=== PATIENT | male | born 1950 | race Caucasian/White ===

== ENCOUNTER 2020-10-03 12:01 | Inpatient (IN) | payer OTHER, MEDICARE ==
[2020-10-03] VITALS (26 sets, daily range): BP systolic 107–138; BP diastolic 45–88
[~2020-10-03] VITALS: Ht 182.9 cm; Wt 89.8 kg
--- NOTE | 2020-10-03 12:05 | NUR ---
[id number] [facility], per [facility] pt's pmd called of critical low hgb. Patient denies any medical complains. Patient in bed, kept comfortable.
--- NOTE | 2020-10-03 12:15 | NUR ---
Dr. Gómez at bedside for eval. rectal exam done with a supervisor boarding.
[2020-10-03] MEDS ORDERED: PALI234D IM (12:21)
[2020-10-03] MEDS ORDERED: GABA300C PO (12:21)
[2020-10-03] MEDS ORDERED: ESCI10TA PO ×2 (12:21→13:01)
[2020-10-03] MEDS ORDERED: IV NS 0.9% 1,000 ML BAG IV ONE (12:30)
--- NOTE | 2020-10-03 12:33 | NUR ---
IV LINE ESTABLISHED, BLOOD DRAWN AND SENT TO LAB.
[2020-10-03 12:44] LABS: BASOPHILS # (AUTO) 0.1 /CMM (0.0-0.2); BASOPHILS % (AUTO) 1.7 % (0.0-2.0); EOSINOPHILS % (AUTO) 3.5 % (0.0-6.0); LYMPHOCYTES # (AUTO) 1.2 /CMM (0.8-4.8); LYMPHOCYTES % (AUTO) 33.5 % (20.0-44.0); MEAN CORPUSCULAR HGB CONC 28 g/dl (31.0-36.0); MEAN CORPUSCULAR VOLUME 59 fL (80-96); MONOCYTES # (AUTO) 0.3 /CMM (0.1-1.30); MONOCYTES % (AUTO) 8.6 % (2.0-12.0); NEUTROPHILS # (AUTO) 1.9 /CMM (1.8-8.9); NEUTROPHILS % (AUTO) 52.7 % (43.0-81.0); PLATELET COUNT (AUTO) 338 /CMM (150-450); RED BLOOD CELL COUNT(AUTO) 2.72 MIL/uL (4.5-6.0); WHITE BLOOD COUNT (AUTO) 3.5 K/uL (4.3-11.0)
[2020-10-03 12:49] LABS: CARBON DIOXIDE 26 mmol/L (21-32); CHLORIDE 106 mmol/L (98-107); CREATININE 0.9 mg/dL (0.6-1.3); GLUCOSE 102 mg/dL (74-106); POTASSIUM 3.9 mmol/L (3.5-5.1); SODIUM SERUM 143 mmol/L (136-145); UREA NITROGEN, BLOOD 13 mg/dL (7-18)
[2020-10-03 12:54] LABS: ALANINE AMINOTRANSFERASE 15 U/L (12-78); ALBUMIN 3.5 g/dL (3.4-5.0); ALKALINE PHOSPHATASE 74 U/L (46-116); ASPARTATE AMINOTRANSFERASE 15 U/L (15-37); BILIRUBIN,TOTAL 0.2 mg/dL (0.2-1.0); CALCIUM, SERUM 8.6 mg/dL (8.5-10.1); HEMATOCRIT 16 % (39-51); LIPASE 71 U/L (73-393); TOTAL PROTEIN, SERUM 7.3 g/dL (6.4-8.2)
[2020-10-03 12:55] LABS: HEMOGLOBIN 4.4 g/dL (13.5-17.5)
[2020-10-03] MEDS ORDERED: B/P MED (13:01)
--- NOTE | 2020-10-03 13:19 | NUR ---
MD EXPLAINED BLOOD TRANSFUSION PROCESS, PATIENT AGREED AND GAVE CONSENT.
--- NOTE | 2020-10-03 13:23 | NUR ---
PATIENT GOING TO [facility] 257.
--- NOTE | 2020-10-03 13:34 | NUR ---
REPORT GIVEN TO ANAT GARCIA.
[2020-10-03 13:52] LABS: EOSINOPHILS % (MANUAL) 3 % (0-4); LYMPHOCYTES % (MANUAL) 24 % (16-48); MONOCYTES % (MANUAL) 8 % (0-11.0); NEUTROPHILS % (MANUAL) 65 (42-76)
[2020-10-03] MEDS ORDERED: IOHEXOL-300 100 ML VIAL IV ONE (13:52)
[2020-10-03] MEDS ORDERED: IV NS 0.9% 250 ML IV ONE (13:53)
[2020-10-03] MEDS ORDERED: CT SWABBABLE VALVE TRANS SET 1 EA INFUS.SET MC ONE (13:53)
[2020-10-03 14:08] LABS: IRON, SERUM 9 ug/dl (50-175); TOTAL IRON BINDING CAPACITY 361 ug/dl (250-450)
--- NOTE | 2020-10-03 14:14 | NUR ---
patient transferred to room 257 via acls protocol. No distress noted. PRBC 1 unit is not ready at this time. Patient a/ox4, breathinge horace and unlabored, no sob noted. Endorsed to Cornelio GARCIA for amanda.
--- NOTE | 2020-10-03 14:15 | NUR ---
RADIO STATION ENGINEER NOTES ADMITTED 70 YEARS OLD, M, DUE TO WEAKNESS, ADMITTING DIAGNOSIS OF SEVERE ANEMIA, WILL TRANSFUSE PRBC, CONSENT SIGNED, AWAITING FOR BLOOD. A/O X2, ON RA, TOLERATING WELL, IV ACCESS ON LAC#18, ON TELE MONITOR, SR WITH HR OF 78. SKIN INTACT. SAFETY MEASURES INITIATED, BED IN LOWEST LOCKED POSITION WITH SIDE RAILS UP X2, CALL LIGHT PLACED WITHIN EASY REACH, WILL CONTINUE TO MONITOR.
[2020-10-03 14:26] LABS: FERRITIN 6 ng/mL (8-388)
[2020-10-03] MEDS ORDERED: ACETAMINOPHEN 325 MG TABLET PO PRN (14:30)
[2020-10-03] MEDS ORDERED: Z GUARD REMEDY 2 OZ OINT TP PRN (14:30)
[2020-10-03] MEDS ORDERED: MAGNESIUM HYDROXIDE 30 ML UDC PO PRN (14:30)
[2020-10-03] MEDS ORDERED: MAG HYDROX/AL HYDROX/SIMETH 30 ML UDC PO PRN (14:30)
[2020-10-03] MEDS ORDERED: ONDANSETRON HCL/PF 4 MG/2 ML VIAL IVP PRN (14:30)
[2020-10-03] MEDS: SOD FERRIC GLUC 125 MG in IV NS 0.9% 100 ML IV SCH (14:47)
[2020-10-03] MEDS: PANTOPRAZOLE 40 MG VIAL IV SCH (16:27)
[2020-10-03] MEDS ORDERED: ACETAMINOPHEN 325 MG TABLET PO ONE (17:30)
[2020-10-03] MEDS ORDERED: diphenhydrAMINE HCL 50 MG/ML VIAL IV ONE (17:30)
--- NOTE | 2020-10-03 18:41 | NUR ---
JUMP ROLL OPERATOR NOTES PATIENT IN BED RESTING COMFORTABLY IN MODERATE HIGH BACK REST. A/O X4. ON RA SATING 99%, IV ACCESS ON LAC#18 CURRENTLY TRANSUFING 1 UNIT OF PRBC, TOLERATING WELL, NO ADVERSE REACTIO NOTED AT THIS TIME, VSS. SAFETY MEASURES IN PLACE, BED IN LOWEST LOCKED POSITION WITH SIDE RAILS UP X2. CALL LIGHT WITHIN REACH. WILL ENDORSE TO FACING SLITTER NURSE FOR YADIRA.
--- NOTE | 2020-10-03 19:30 | NUR ---
RN OPENING NOTES: RECEIVED PT A/OX3-4 IN BED RESTING COMFORTABLY. PATIENT IN NO S/SX OF ACUTE DISTRESS AT THIS TIME. NO SOB NOTED. PATIENT'S BREATHING IS EVEN AND UNLABORED. PATIENT IS ON ROOM AIR; TOLERATING WELL WITH O2 SAT OF 98% AT THE TIME OF RECEIVED. PATIENT ON TELE MONITORING READING SINUS RHYTHM HR IS @66 AT THE TIME OF RECEIVED.PT IS AMBULATORY. NOTED IV SITE ON L AC #18;PATENT, INTACT AND FLUSHING WELL; NO S/S OF INFECTION OR INFILTRATION. RECEIVED WITH ONGOING BLOOD TRANSFUSION 1ST BAG. WITH URINALS AT BEDSIDE. SAFETY MEASURES HAVE BEEN PROVIDED AND IMPLEMENTED. PATIENT BED ALARM IS ON. HEAD OF BED ELEVATED. BED IS LOCKED, IN LOWEST POSITION AND SIDE RAILS UP. CALL LIGHT WITHIN REACH OF THE PATIENT. APPLICABLE ISOLATION PRECAUTIONS IN PLACE. WILL CONTINUE TO MONITOR AND REASSESS FOR ANY CHANGES AND WILL CARRY OUT ANY ONGOING AND ACTIVE MD ORDER.
--- NOTE | 2020-10-03 20:40 | NUR ---
RN NOTES ENDED INFUSION AT 2037 1ST BAG OF PRBC, NO TRANSFUSION REACTION NOTED. VITAL SIGNS WNL. MANAGER SALT MADE AWARE. WILL CONTINUE TO MONITOR AND REASSESS FOR ANY TRANSFUSION REACTION POST PROCEDURE.
--- NOTE | 2020-10-03 21:20 | NUR ---
RN NOTES STARTED 2ND BAG OF PRBC, VITAL SIGNS WNL. WILL CONTINUE TO MONITOR AND REASSESS FOR ANY TRANSFUSION REACTION.STAFF APPRAISER WELL AWARE.
--- NOTE | 2020-10-03 21:30 | NUR ---
RN NOTES VERIFIED WITH NORMA KATZ REGARDING ORDER FOR BLOOD TRANSFUSION PER SABAS TO TRANSFUSE 3 BAGS OF PRBC AND PER ALEX/ONCO TRANSFUSE 2 BAGS ; NORMA KATZ SAID DO 3 BAGS THEN H&H AFTER 1HOUR. DYNAMITE CARTRIDGE CRIMPER MADE AWARE. WILL CARRY OUT ORDER REQUESTED
--- NOTE | 2020-10-03 22:30 | NUR ---
RN NOTES PATIENT REMAINS IN NO ACUTE RESPIRATORY DISTRESS AT THIS TIME, NO CHANGES TO CONDITION/STATUS. SUEDING MACHINE TENDER WELL AWARE. WILL CONTINUE TO MONITOR AND REASSESS FOR ANY CHANGES THROUGHOUT THE SHIFT
--- NOTE | 2020-10-03 23:45 | NUR ---
RN NOTES ENDED INFUSION AT 2345 2ND BAG OF PRBC, NO TRANSFUSION REACTION NOTED. VITAL SIGNS WNL. TECHNICAL CLERK MADE AWARE. WILL CONTINUE TO MONITOR AND REASSESS FOR ANY TRANSFUSION REACTION POST PROCEDURE
[2020-10-04] VITALS (28 sets, daily range): BP systolic 113–158; BP diastolic 63–96
--- NOTE | 2020-10-04 00:15 | NUR ---
RN NOTES NOTED IV LINE ON L AC TO BE DISLODGED AND NON-PATENT. FACILITATED CHANGE AND REINSERTION OF IV LINE @ L HAND #20; SECURED, INTACT AND FLUSHING WELL. SPACECRAFT SYSTEMS ENGINEER MADE AWARE. WILL CONTINUE TO MONITOR AND ASSESS THROUGHOUT THE SHIFT
--- NOTE | 2020-10-04 01:15 | NUR ---
RN NOTES NOTED PT REMOVED HIS IV ACCESS/LINE, RESTLESS AND AGITATED. ROWENA GARCIA MADE AWARE, WILL CONTACT NORMA KATZ TO SECURE FOR ORDERS. NORMA KATZ ORDERED ATIVAN 1MG Q6PRN AND ACUTE MEDICAL RESTRAINTS. ROWENA GARCIA MADE AWARE. WILL CARRYOUT ORDER AND CONTINUE TO MONITOR AND ASSESS. Addendum: 10/04/20 at 0225 by JOSLYN GOULD RN NEW IV LINE/ACCESS ON THE L AC #20; SECURED, INTACT AND FLUSHING WELL. ROWENA GARCIA MADE AWARE. WILL CONTINUE TO MONITOR AND ASSESS THROUGHOUT THE SHIFT
[2020-10-04] MEDS: LORAZEPAM INJ 2 MG/ML VIAL IV PRN ×2 (01:57→09:20)
--- NOTE | 2020-10-04 02:27 | NUR ---
RN NOTES STARTED 3RD BAG OF PRBC, VITAL SIGNS WNL. WILL CONTINUE TO MONITOR AND REASSESS FOR ANY TRANSFUSION REACTION.HEALTH INFORMATION MANAGER WELL AWARE.
--- NOTE | 2020-10-04 03:30 | NUR ---
RN NOTES NO CHANGE IN PATIENT CONDITION AT THIS TIME PATIENT VITALS STABLE, NO SIGNS OF ACUTE RESPIRATORY DISTRESS. SPORTS AGENT MADE AWARE. WILL CONTINUE TO MONITOR AND REASSESS FOR ANY CHANGES THROUGHOUT THE SHIFT.
--- NOTE | 2020-10-04 04:18 | NUR ---
RN NOTES ENDED INFUSION AT 0418 3RD BAG OF PRBC, NO TRANSFUSION REACTION NOTED. VITAL SIGNS WNL. NURSE CHEMICAL DEPENDENCY MADE AWARE. WILL CONTINUE TO MONITOR AND REASSESS FOR ANY TRANSFUSION REACTION POST PROCEDURE. WILL REQUEST FOR H&H 1 HOUR POST PROCEDURE
[2020-10-04 04:45] LABS: BILIRUBIN,URINE NEGATIVE (NEGATIVE); COLOR,URINE YELLOW (YELLOW); LEUKOCYTE ESTERASE ,URINE NEGATIVE (NEGATIVE); NITRITE, URINE NEGATIVE (NEGATIVE); PROTEIN,URINE NEGATIVE (NEGATIVE); UGLUCOSE NEGATIVE (NEGATIVE); UROBILINOGEN,URINE 0.2 EU/dL (0.2)
[2020-10-04 05:41] LABS: BASOPHILS % (AUTO) 0.9 % (0.0-2.0); EOSINOPHILS % (AUTO) 1.7 % (0.0-6.0); HEMATOCRIT 25 % (39-51); HEMOGLOBIN 7.4 g/dL (13.5-17.5); LYMPHOCYTES # (AUTO) 1.2 /CMM (0.8-4.8); LYMPHOCYTES % (AUTO) 24.2 % (20.0-44.0); MEAN CORPUSCULAR HGB CONC 30 g/dl (31.0-36.0); MEAN CORPUSCULAR VOLUME 69 fL (80-96); MONOCYTES # (AUTO) 0.3 /CMM (0.1-1.30); MONOCYTES % (AUTO) 6.5 % (2.0-12.0); NEUTROPHILS # (AUTO) 3.4 /CMM (1.8-8.9); NEUTROPHILS % (AUTO) 66.7 % (43.0-81.0); PLATELET COUNT (AUTO) 301 /CMM (150-450); RED BLOOD CELL COUNT(AUTO) 3.65 MIL/uL (4.5-6.0); WHITE BLOOD COUNT (AUTO) 5.2 K/uL (4.3-11.0)
[2020-10-04 05:52] LABS: CALCIUM, SERUM 8.7 mg/dL (8.5-10.1); CREATININE 1.1 mg/dL (0.6-1.3); MAGNESIUM 2.1 mg/dL (1.8-2.4); PHOSPHORUS 3.5 mg/dL (2.5-4.9); POTASSIUM 3.9 mmol/L (3.5-5.1)
[2020-10-04 06:01] LABS: THYROID STIMULATING HORMONE 1.849 uIU/mL (0.358-3.74)
--- NOTE | 2020-10-04 06:56 | NUR ---
RN CLOSING NOTE: PATIENT REMAINS IN ROOM IN NO SIGNS OF RESPIRATORY DISTRESS, PATIENT STILL ON ROOM AIR;TOLERATING WELL SATURATING @ >95% SP02. SAFETY MEASURES IMPLEMENTED, BED IN LOWEST POSITION, LOCKED, SIDE RAILS UP, CALL LIGHT WITHIN REACH. ALL NEEDS AND ORDERS ADDRESSED DURING THE SHIFT. IV ACCESS MAINTAINED INTACT, SECURED AND FLUSHING WELL. ALL DUE MEDS GIVEN ORDERED & SCHEDULED ; PATIENT TOLERATED WELL. PATIENT KEPT CLEAN AND COMFORTABLE WITHIN THE SHIFT. PATIENT ENDORSED TO INCOMING SHIFT RN WITH STABLE VITAL SIGN AND FOR CONTINUITY OF CARE.
--- NOTE | 2020-10-04 07:10 | NUR ---
LICENSE ISSUER NOTES RECEIVED PATIENT IN BED ASLEEP IN MODERATE HIGH BACK REST, NO SIGNS OF RESPIRATORY DISTRESS, PATIENT STILL ON ROOM AIR;TOLERATING WELL SATURATING @ >95% SP02. IV ACCESS ON LAC#20, INTACT, SECURED AND FLUSHING WELL. SAFETY MEASURES MAINTAINED, BED IN LOWEST POSITION, LOCKED, SIDE RAILS UPX2, CALL LIGHT WITHIN REACH. WILL CONTINUE TO MONITOR.
[2020-10-04] MEDS: NICOTINE PATCH (14MG) 14 MG PATCH.TD24 TD SCH (08:04)
[2020-10-04] MEDS: PANTOPRAZOLE 40 MG VIAL IV SCH ×2 (08:04→17:00)
--- NOTE | 2020-10-04 09:03 | NUR ---
MOLDED PARTS INSPECTOR NOTES PATIENT REMOVED BP CUFF AND OXYGEN MONITORING DEVICE, EXPLAINED RISKS AND BENEFITS BUT STILL REFUSED, MD AWARE. WILL CONTINUE TO MONITOR.
--- NOTE | 2020-10-04 09:05 | NUR ---
CONCRETE SCULPTOR NOTES PATIENT AGITATED, WALKING BACK AND FORT INISIDE THE ROOM. NOT COMPLIANT, REORIENTED FOR A FEW TIMES, WILL GIVE ATIVAN ORDERED, WILL CONTINUE TO MONITOR.
[2020-10-04 10:44] LABS: HEMOGLOBIN 7.6 g/dL (13.5-17.5)
--- NOTE | 2020-10-04 11:59 | NUR ---
Director Of Collections And Archives note: food services director consult requested for homelessness. Patient is a 70-year-old, white male. SW attempted to meet with the patient at his bedside on the ICU. Patient presented lethargic and unarousable. food services director will follow-up with the patient at a later time for consult and to provide resources.
--- NOTE | 2020-10-04 13:30 | NUR ---
Coding Technician note: SHI spoke to rn relief charge, Aileen who stated that a psychiatric consult order has been made with Dr. Nash.
--- NOTE | 2020-10-04 14:25 | NUR ---
RN NOTES PATIENT TRANSFERRED TO ROOM 116, REPORT GIVEN TO JOSE ROBLEDO AT BEDSIDE, PATIENT IN STABLE CONDITION, ALL BELONGINGS AND MEDICATION WITH PATIENT, VSS.
[2020-10-04] MEDS: SOD FERRIC GLUC 125 MG in IV NS 0.9% 100 ML IV SCH (15:13)
--- NOTE | 2020-10-04 15:17 | NUR ---
Patient received from ICU in stable condition. Patient provided with tele upon unit transfer. No c/o pain or discomfort.
--- NOTE | 2020-10-04 17:50 | NUR ---
Patient noted with his IV pulled out, no s/s of bleeding. Patient provided care and refused to have his iv re inserted. Patient also noted to be smoking in his room. Security called and retail customer service specialist and cigaretts given to staff by patient.Patient refused CT without contrast. All information provided to MD Marquez and made aware. Per NNO.
[2020-10-04] MEDS ORDERED: PEG 3350/NA SULF,BICARB,CL/KCL 4,000 ML BOTTLE PO ONE (19:00)
--- NOTE | 2020-10-04 19:30 | NUR ---
RN CLOSING NOTES Patient is alert and oriented with forgetfulness. No c/o pain or discomfort. Able to ambulate. Patient non compliant with care. Endorsed to next shift to follow up about go lytely along with patient's consent for colonoscopy.Endorsed to next shift for amanda.Patient did not have his iv at the time of endorsement due to refusal. aware.
--- NOTE | 2020-10-04 19:45 | NUR ---
RN NOTES RECEIVED PT. ALERT AND ORIENTED X 2, FORGETFUL. REORIENTED TO PLACE AND SITUATION. PT ASKING FOR COFFEE, EDUCATED ABOUT BEING NPO AND FOR COLONOSCOPY TOMORROW AND NEED TO DRINK GOLYTELY. PT ASKING REPEATEDLY WHAT IS IT FOR, ANSWERED ALL QUESTIONS. PT STARTED DRINKING GOLYTELY. PT ON TELE MONITOR SHOWS SR WITH HR OF 61. DENIES ANY PAIN AT THIS TIME. NO DISTRESS NOTED. PT NO IV ACCESS. TRIED 3X. ATTEMPT UNSUCCESSFUL. WILL TRY AGAIN LATER. ALL SAFETY MEASURES IMPLEMENTED PER PROTOCOL. CALL LIGHT WITHIN REACH. WILL CONTINUE TO MONITOR.
[2020-10-05] VITALS: BP 141/86
[2020-10-05 04:00] VITALS: BP 121/80
--- NOTE | 2020-10-05 06:43 | NUR ---
RN NOTE PT IN BED SLEEPING, AROUSES EASILY. NO DISTRESS NOTED. PT ABLE TO FINISH ABOUT 3L OF GOLYTELY. PT DOES NOT WANT TO FINISH THE BOTTLE ANYMORE, EXPLAINED RISKS AND BENEFITS. NO SCHEDULE FOR COLONOSCOPY YET. WAS ABLE TO INSERT NEW IV LINE ON RIGHT HAND, PT PULLED OUT A MINUTE AFTER, PER PT HE DOESN'T WANT ANY IV. WILL ENDORSE TO NEXT SHIFT NURSE.
[2020-10-05 06:54] LABS: BASOPHILS # (AUTO) 0.1 /CMM (0.0-0.2); BASOPHILS % (AUTO) 1.7 % (0.0-2.0); EOSINOPHILS % (AUTO) 5.4 % (0.0-6.0); HEMATOCRIT 25 % (39-51); HEMOGLOBIN 7.4 g/dL (13.5-17.5); LYMPHOCYTES # (AUTO) 1.2 /CMM (0.8-4.8); LYMPHOCYTES % (AUTO) 33.8 % (20.0-44.0); MEAN CORPUSCULAR HGB CONC 30 g/dl (31.0-36.0); MEAN CORPUSCULAR VOLUME 68 fL (80-96); MONOCYTES # (AUTO) 0.4 /CMM (0.1-1.30); MONOCYTES % (AUTO) 10.4 % (2.0-12.0); NEUTROPHILS # (AUTO) 1.7 /CMM (1.8-8.9); NEUTROPHILS % (AUTO) 48.7 % (43.0-81.0); PLATELET COUNT (AUTO) 311 /CMM (150-450); RED BLOOD CELL COUNT(AUTO) 3.66 MIL/uL (4.5-6.0); WHITE BLOOD COUNT (AUTO) 3.6 K/uL (4.3-11.0)
[2020-10-05 07:04] LABS: CALCIUM, SERUM 8.8 mg/dL (8.5-10.1)
--- NOTE | 2020-10-05 07:15 | NUR ---
RN OPENING NOTE Received patient asleep in bed. Appears calm and relaxed no signs of distress. Patient on room air tolerating well. No co pain or discomfort. Patient is cooperative. NPO for colonoscopy. Refused IV insertion per night cleaner. No signs of bleeding. Go Lytley was consumed 1/4 left. Will cont to monitor. Safety measures maintained.
[2020-10-05 08:00] VITALS: BP 119/55
[2020-10-05 08:06] LABS: IMMUNOGLOBULIN A, SERUM 302 mg/dL (61-437); IMMUNOGLOBULIN G, SERUM 1254 mg/dL (603-1613); IMMUNOGLOBULIN M, SERUM 49 mg/dL (20-172)
[2020-10-05 10:07] LABS: *ANA ANTI-CENTROMERE B AB <0.2 AI (0.0-0.9); *ANA ANTI-DNA(DS) AB, QN 44 IU/mL (0-9); *ANA ANTI-JO-1 <0.2 AI (0.0-0.9); *ANA ANTICHROMATIN ANTIBODY <0.2 AI (0.0-0.9); *ANA RNP ANTIBODIES <0.2 AI (0.0-0.9); *ANA SJOGREN'S ANTI-SS-A <0.2 AI (0.0-0.9); *ANA SJOGREN'S ANTI-SS-B <0.2 AI (0.0-0.9); *ANAANTI-SCLERODERMA-70 AB <0.2 AI (0.0-0.9); *ANASMITH AB <0.2 AI (0.0-0.9)
[2020-10-05] MEDS: NICOTINE PATCH (14MG) 14 MG PATCH.TD24 TD SCH (10:14)
--- NOTE | 2020-10-05 10:37 | NUR ---
PT REFUSED COLONOSCOPY AND IV INSERTION. INFORMED SABAS RODRÍGUEZ. OK TO START CLEAR LIQUID DIET. INFORMED PHARMACY TO CHANGE IV MEDS TO PO.
[2020-10-05] MEDS: PANTOPRAZOLE 40 MG TABLET.DR PO SCH ×2 (10:45→17:06)
[2020-10-05] MEDS ORDERED: LORAZEPAM 1 MG TABLET PO PRN (11:00)
[2020-10-05] MEDS ORDERED: ONDANSETRON 4 MG TAB.RAPDIS PO PRN (11:00)
[2020-10-05 12:00] VITALS: BP 120/80
[2020-10-05 16:00] VITALS: BP 124/82
[2020-10-05] MEDS ORDERED: PEG 3350/NA SULF,BICARB,CL/KCL 4,000 ML BOTTLE PO ONE (18:00)
--- NOTE | 2020-10-05 18:52 | NUR ---
RN CLOSING NOTE Patient in bed awake watching TV. Appears calm and relaxed. No signs of distress. No bleeding. All due meds given. Go Lytely at bedside instructed to finish by 6am. NPO after midnight. Colonoscopy consent in the chart. Vital signs within normal limits. Will endorse to night baker nurse for amanda.
--- NOTE | 2020-10-05 19:30 | NUR ---
RN OPENING NOTES: RECEIVED PT A/OX2-3 IN HIS ROOM RESTING COMFORTABLY. PATIENT IN NO S/SX OF ACUTE DISTRESS AT THIS TIME. NO SOB NOTED. PATIENT'S BREATHING IS EVEN AND UNLABORED. PATIENT IS ON ROOM AIR ; TOLERATING WELL WITH 02 SAT OF100% AT THE TIME OF RECEIVED. PATIENT ON TELE MONITORING READING SINUS RHYTHM HR IS @60s AT THE TIME OF RECEIVED. PATIENT ON CLEAR DIET; TOLERATES WELL. WILL BE ON NPO POST MIDNIGHT IN PREPARATION FOR COLONSCOPY WILDER MORNING. NO IV SITE/ACCESS AT THE TIMEOF RECEIVED; PT REFUSED. PT HAS BRP. SAFETY MEASURES HAVE BEEN PROVIDED AND IMPLEMENTED. PATIENT BED ALARM IS ON. HEAD OF BED ELEVATED. BED IS LOCKED, IN LOWEST POSITION AND SIDE RAILS UP. CALL LIGHT WITHIN REACH OF THE PATIENT. APPLICABLE ISOLATION PRECAUTIONS IN PLACE. WILL CONTINUE TO MONITOR AND REASSESS FOR ANY CHANGES AND WILL CARRY OUT ANY ONGOING AND ACTIVE MD ORDER.
[2020-10-05 20:00] VITALS: BP 139/82
--- NOTE | 2020-10-05 22:30 | NUR ---
RN NOTES NO CHANGE IN PATIENT CONDITION AT THIS TIME PATIENT VITALS STABLE, NO SIGNS OF ACUTE RESPIRATORY DISTRESS. PROPERTY DAMAGE CLAIMS ADJUSTOR MADE AWARE. WILL CONTINUE TO MONITOR AND REASSESS FOR ANY CHANGES THROUGHOUT THE SHIFT.
[2020-10-06] VITALS (7 sets, daily range): BP systolic 127–170; BP diastolic 75–84
--- NOTE | 2020-10-06 | NUR ---
RN NOTES PT ON NPO POST MIDNIGHT IN PREPARATION FOR AM PROCEDURE ( COLONSCOPY) COMMUNITY MARKETING COORDINATOR WELL AWARE. .
--- NOTE | 2020-10-06 03:00 | NUR ---
RN NOTES PATIENT REMAINS IN NO ACUTE RESPIRATORY DISTRESS AT THIS TIME, NO CHANGES TO CONDITION/STATUS. AM PATIENT CARE DONE. MACHINE DEICER ELEMENT WINDER WELL AWARE. WILL CONTINUE TO MONITOR AND REASSESS FOR ANY CHANGES THROUGHOUT THE SHIFT
--- NOTE | 2020-10-06 05:00 | NUR ---
RN NOTES INITIATED/ATTEMPTED IV LINE INSERTION FOR THE 2ND TIME FOR THE SHIFT BUT PT REFUSED; EXPLAINED RISK AND BENEFITS BUT PT STILL REFUSED. MOTOR COACH CHAUFFEUR MADE AWARE. WILL ENDORSE TO AM SHIFT FOR FOLLOW THROUGH.
--- NOTE | 2020-10-06 06:54 | NUR ---
RN CLOSING NOTE: PATIENT REMAINS IN ROOM IN NO SIGNS OF RESPIRATORY DISTRESS, PATIENT STILL ON ROOM AIR;TOLERATTNG WELL SATURATING @ >95% SP02. SAFETY MEASURES IMPLEMENTED, BED IN LOWEST POSITION, LOCKED, SIDE RAILS UP, CALL LIGHT WITHIN REACH. ALL NEEDS AND ORDERS ADDRESSED DURING THE SHIFT. STILL WITHOUT IV ACCESS; PT REFUSED. ON NPO AT THIS TIME. PATIENT KEPT CLEAN AND COMFORTABLE WITHIN THE SHIFT. PATIENT ENDORSED TO INCOMING SHIFT RN WITH STABLE VITAL SIGN AND FOR CONTINUITY OF CARE.
[2020-10-06 07:29] LABS: BASOPHILS # (AUTO) 0.1 /CMM (0.0-0.2); BASOPHILS % (AUTO) 1.8 % (0.0-2.0); EOSINOPHILS % (AUTO) 6.4 % (0.0-6.0); HEMATOCRIT 26 % (39-51); LYMPHOCYTES # (AUTO) 1.4 /CMM (0.8-4.8); LYMPHOCYTES % (AUTO) 39.5 % (20.0-44.0); MEAN CORPUSCULAR HGB CONC 30 g/dl (31.0-36.0); MEAN CORPUSCULAR VOLUME 69 fL (80-96); MONOCYTES # (AUTO) 0.3 /CMM (0.1-1.30); MONOCYTES % (AUTO) 8.3 % (2.0-12.0); NEUTROPHILS # (AUTO) 1.6 /CMM (1.8-8.9); PLATELET COUNT (AUTO) 333 /CMM (150-450); RED BLOOD CELL COUNT(AUTO) 3.85 MIL/uL (4.5-6.0); WHITE BLOOD COUNT (AUTO) 3.6 K/uL (4.3-11.0)
[2020-10-06 07:56] LABS: CALCIUM, SERUM 9.1 mg/dL (8.5-10.1); CREATININE 1.1 mg/dL (0.6-1.3); MAGNESIUM 2.2 mg/dL (1.8-2.4); PHOSPHORUS 4.6 mg/dL (2.5-4.9); POTASSIUM 4.7 mmol/L (3.5-5.1)
--- NOTE | 2020-10-06 08:05 | NUR ---
MS RN NOTE PATIENT IN BED , ALERT ORIENTED ON NPO AT THIS TIME , PATIENT WILL HAVE COLONOSCOPY TODAY,BED IN LOWEST AND LOCKED POSITION , CALL LIGHT WITHIN REACH , BED IN LOWEST AND LOCKED POSITION , SAFETY MEASURE IMPLEMENTED, WILL CONT TO MONITOR CLOSELY
[2020-10-06] MEDS: NICOTINE PATCH (14MG) 14 MG PATCH.TD24 TD SCH (08:34)
[2020-10-06] MEDS: PANTOPRAZOLE 40 MG TABLET.DR PO SCH ×2 (09:00→16:47)
--- NOTE | 2020-10-06 10:00 | NUR ---
SUPERVISOR [employer]ITATION NOTE CALLED TO DR WOODS NOTIFIED THAT T 99.4 OK TO GIVE TYLENOL AND GIVE BLOOD TRANSFUSION , WILL F\U Addendum: 10/06/20 at 1045 by RAMBO FERNANDEZ RN WRONG CHARTING
--- NOTE | 2020-10-06 10:25 | NUR ---
ABDULKADIR;ANYA GARCIA NOTE I UNIT PRBC START TO TRANSFUSE Addendum: 10/06/20 at 1045 by RAMBO FERNANDEZ RN WRONG CHARTING
--- NOTE | 2020-10-06 10:46 | NUR ---
MS RN NOTE TAKING TO COLONOSCOPY TO GI LAB
--- NOTE | 2020-10-06 11:38 | NUR ---
MS RN NOTE PER DR JONATHAN PHILLIPS REGULAR DIET
[2020-10-06] MEDS: FERROUS SULFATE (325 MG) 325 MG/TAB TABLET PO SCH (11:59)
[2020-10-06 12:14] LABS: EOSINOPHILS % (MANUAL) 7 % (0-4); LYMPHOCYTES % (MANUAL) 27 % (16-48); MONOCYTES % (MANUAL) 7 % (0-11.0); NEUTROPHILS % (MANUAL) 59 (42-76)
--- NOTE | 2020-10-06 15:21 | NUR ---
MS RN NOTE , ALL NEEDS ATTENDED NOT IN DISTRESS
--- NOTE | 2020-10-06 17:03 | NUR ---
MS RN NOTE CT HEAD DONE ORDERED
--- NOTE | 2020-10-06 18:25 | NUR ---
RN NOTES PATIENT OBSERVED IN BED, EVEN AND UNLABORED RESPIRATION, AFEBRILE AT THIS TIME, NO SOB, NEEDS MET AND ANTICIPATED, DUE MEDICATION GIVEN ORDERED, CALL LIGHT WITHIN REACH, BED LOCK AND IN LOW POSITION, WILL CONTINUE TO MONITOR, WILL ENDORSE TO NEXT SHIFT.
--- NOTE | 2020-10-06 19:30 | NUR ---
RN OPENING NOTE REPORT RECIEVED FROM SUSAN GARCIA AND OSITO RN . PATIENT OBSERVED FULLY DRESSED SITTING IN BED, RESP EVEN AND UNLABORED CALL LIGHT WITHIN REACH, BED LOCK AND IN LOW POSITION, PATIENT REFUSING IV ACCESS PER REPORT HE PULLED OUT LAST IV. PER REPORT MD IS AWARE. PT DENIES PAIN. WILL CONT TO MONITOR.
--- NOTE | 2020-10-06 20:00 | NUR ---
MS RN NOTE PT IN HIS ROOM PACING, A/O X 3, NO SOB, NO DISTRESS OR DISCOMFORT NOTED. DENIES PAIN. PT REMAIN IN ISOLATION FOR COVID PCR RESULT PENDING. PT WITH NO FEVER AND COUGHING. ALL NEEDS ATTENDED. SIDE RAILS UP X 2, CALL LIGHT WITHIN REACH. VSS. CONTINUE TO MONITOR HIM.
--- NOTE | 2020-10-06 20:41 | NUR ---
report givven to charge nurse regine meier. questions concerns addressed. he is to assume pt care.
[2020-10-07 04:00] VITALS: BP 132/76
--- NOTE | 2020-10-07 06:36 | NUR ---
MS RN NOTE PT IN BED ASLEEP, EASILY AROUSABLE. NO DISTRESS OR DISCOMFORT NOTED. DENIES PAIN. ALL NEEDS ATTENDED. SIDE RAILS UP X 2 AND CALL LIGHT WITHIN REACH. WILL ENDORSE TO DAY SHIFT NURSE FOR CONTINUE TO CARE.
[2020-10-07] MEDS ORDERED: FERR325T28 PO (09:31)
[2020-10-07] MEDS: PANTOPRAZOLE 40 MG TABLET.DR PO SCH (09:40)
[2020-10-07] MEDS: FERROUS SULFATE (325 MG) 325 MG/TAB TABLET PO SCH (09:40)
[2020-10-07] MEDS: NICOTINE PATCH (14MG) 14 MG PATCH.TD24 TD SCH (09:40)
--- NOTE | 2020-10-07 13:06 | NUR ---
Patient given discharge instruction and follow up with a copy of the above. Given bus transportation tap card. Patient verbalizes understanding of teaching. Took all belongings and is going to hotel he was previously staying at. Sergio Yuan RN
[2020-10-07 14:06] LABS: *SPE A/G RATIO 1.1 (0.7-1.7); *SPE ALBUMIN 3.5 g/dL (2.9-4.4); *SPE ALPHA-1-GLOBULIN 0.2 g/dL (0.0-0.4); *SPE ALPHA-2-GLOBULIN 0.8 g/dL (0.4-1.0); *SPE BETA GLOBULIN 1.1 g/dL (0.7-1.3); *SPE GLOBULIN, TOTAL 3.3 g/dL (2.2-3.9); *SPE M-SPIKE Not Observed g/dL (Not Observed); *SPEGAMMA GLOBULIN 1.1 g/dL (0.4-1.8)
--- NOTE | 2020-10-07 14:31 | NUR ---
Patient given discharge instruction and follow up again with bus card to hotel to get personal belongings in [place] address patient came from on face sheet. He verbalizes understanding. Sergio Yuan RN
== END 2020-10-07 14:33 | disposition home or self-care (01) | DRG 253 ==
LOC: EDSEX 12:08 → ER 12:08 → ICU 13:26 → TELE1 10-04 14:24 → MEDSG1 10-06 07:36
PROVIDERS: ADMIT Registered Nurse; ATTEND Family Medicine
PROC: 30233N1 Transfusion of Nonautologous Red Blood Cells into Peripheral Vein, Percutaneous Approach (ICD-10-PCS; principal; 2020-10-03)
PROC: 0DJD8ZZ Inspection of Lower Intestinal Tract, Via Natural or Artificial Opening Endoscopic (ICD-10-PCS; 2020-10-05)
DX: K92.2 Gastrointestinal hemorrhage, unspecified (principal); D61.818 Other pancytopenia; J90 Pleural effusion, not elsewhere classified; F25.9 Schizoaffective disorder, unspecified; C18.9 Malignant neoplasm of colon, unspecified; D50.9 Iron deficiency anemia, unspecified; F12.90 Cannabis use, unspecified, uncomplicated; F17.210 Nicotine dependence, cigarettes, uncomplicated; Z59.0 Homelessness; F32.9 Major depressive disorder, single episode, unspecified; I10 Essential (primary) hypertension; R53.1 Weakness; R91.1 Solitary pulmonary nodule; Z20.822 Contact with and (suspected) exposure to COVID-19
CPT/HCPCS: 36415; 70450-TC; 71045-TC; 71260-TC; 80048-TC; 80061-TC; 80076-TC; 82378; 82728-TC; 82784; 83540-TC; 83615-TC; 83690-TC; 83735-TC; 84100-TC; 84155; 84165; 84443-TC; 84484-TC; 85025-TC; 85027-TC; 85730-TC; 86225; 86235; 86334; 86431-TC; 86706; 86803; 86850-TC; 87081-TC; 87340; 97116-TC; 97530-TC; C9113; G0378; J1200; J2060; J2704; J2916; J3490; J7030; J7050; P9016; Q9967; U0003